=== PATIENT | male | born 1985 ===

== ENCOUNTER 2018-10-26 06:46 | Day surgery (SDC) | payer BC ==
[2018-10-14 17:33] VITALS: BMI 39.4
[2018-10-26] MEDS ORDERED: Propofol 10 mg/ml Inj (20 ML) ONE ×2 (07:24→07:58)
[2018-10-26] MEDS ORDERED: Midazolam 2 MG/2 ML VIAL ONE (07:24)
[2018-10-26] MEDS ORDERED: ePHEDrine 50 mg/ml Inj ONE (07:25)
[2018-10-26] MEDS ORDERED: Lidocaine 4% (Laryng-O-Jet) Kit MM ONE (07:26)
[2018-10-26] MEDS ORDERED: Rocuronium 10 mg/ml (5 ml) ONE (07:26)
[2018-10-26] MEDS ORDERED: Succinylcholine Chloride 20 mg/ml Syr (5 ml) IV ONE (07:26)
[2018-10-26] MEDS ORDERED: Succinylcholine 200 mg/10 ml Inj IV ONE (07:58)
[2018-10-26] MEDS ORDERED: Lactated Ringer's 1,000 ML IV ONE (08:05)
[2018-10-26] MEDS ORDERED: Dexamethasone 4 mg/1 ml ONE (08:32)
[2018-10-26] MEDS: Bupivacaine 0.5% Inj(30mL) ONE ×2 (08:43→09:20)
[2018-10-26] MEDS ORDERED: Neostigmine 1:1000 (1 mg/ml) Inj ONE (09:08)
--- NOTE | 2018-10-26 09:47 | PCM.SURG1 ---
Surgeon's Initial Post Op Note - Surgeon's Notes Surgeon: Bulmaro Assembler Skylights: Dialn Type of Anesthesia: General Endo Anesthesia Administered By: Diaz Pre-Operative Diagnosis: symptomatic cholelithiais Operative Findings: chronic cholecystitis Post-Operative Diagnosis: same Operation Performed: Laparoscopic cholecystectomy Specimen/Specimens Removed: gallbladder Estimated Blood Loss: EBL {In ML}: 5 Blood Products Given: N/A Drains Used: No Drains Post-Op Condition: Good Date of Surgery/Procedure: 10/26/18 Time of Surgery/Procedure: 08:30
--- NOTE | 2018-10-26 09:50 | CP.SDSHP ---
Same Day Surgery H & P - History Proposed Procedure: Laparoscopic cholecystectomy - Allergies Allergies: Allergies No Known Allergies Allergy (Unverified 11/05/15 21:49) - Physical Exam Vital Signs: Vital Signs 10/26/18 10/26/18 07:21 07:26 Temperature 98 F Pulse Rate 85 85 Respiratory 18 Rate Blood Pressure 123/60 O2 Sat by Pulse 98 Oximetry Short Stay Discharge - Short Stay Discharge Admitting Diagnosis/Reason for Visit: K80.20 Disposition: HOME/ ROUTINE Follow-up: Follow up in the office in 2 week for post-op visit Additional Instructions (Diet, Activity): No heavy lifting for 4 weeks
[2018-10-26] MEDS ORDERED: Oxycodone/Acetaminophen 5/325 mg Tab PO PRN ×2 (09:51→09:54)
[2018-10-26] MEDS: HYDROmorphone 0.5 mg/0.5 ml ISec IVP PRN ×3 (09:54→11:30)
[2018-10-26] MEDS ORDERED: Lactated Ringer's 1,000 ML IV SCH ×2 (10:00)
[2018-10-26 12:30] VITALS: RESP 18; O2SAT 99
[2018-10-26 15:03] VITALS: BP 139/73; PULSE 76; TEMP 97.6
--- NOTE | 2018-10-26 20:56 | OP ---
PROCEDURE DATE: 10/26/2018 PREOPERATIVE DIAGNOSIS: Symptomatic cholelithiasis. POSTOPERATIVE DIAGNOSIS: Chronic cholecystitis. PROCEDURE: Laparoscopic cholecystectomy. SURGEON: Reji Chamberlain MD [facility] TECHNICIAN: Sean Kong MD TYPE OF ANESTHESIA: General endotracheal intubation. ANESTHESIA ADMINISTERED BY: Sunni Hernandez MD IV FLUIDS: Crystalloids. ESTIMATED BLOOD LOSS: 5 mL. INTRAOPERATIVE FINDINGS: Chronic cholecystitis. SPECIMEN: Gallbladder. BRIEF HISTORY: Mr. Thompson is a very pleasant 33-year-old gentleman who initially presented to my office complaining of right upper quadrant abdominal pain. At one point, the pain was so bad that he presented to an outside facility and underwent a CAT scan showing cholelithiasis and steatosis of the liver. All the risks and benefits of the procedure were explained to the patient. With the patient having a full understanding of all the risks and benefits involved, informed consent was obtained and the patient was taken to the operating room for above-stated procedure. DESCRIPTION OF PROCEDURE: The patient was brought into the operating room and placed supine on the operating room table. Bilateral Flowtron boots were applied to the patient's lower extremities. After successful induction of anesthesia and successful endotracheal intubation by the Anesthesia team, the patient's abdomen was prepped with ChloraPrep stick and draped in a standard surgical fashion. Prior to the beginning of the procedure, a time-out was called in the room and everyone in the room were in agreement. The patient received prophylactic Ancef antibiotics prior to the incision done. Using Veress needle, the patient's abdomen was entered at the umbilicus and pneumoperitoneum was achieved with good opening pressures. Once this was accomplished, using an 11-blade scalpel knife, an approximately 1-cm incision was made in the umbilicus in a longitudinal fashion and subsequent to that, 11-mm trocar was introduced into the patient's abdomen. At this point in time, a 5-mm 0-degree scope was introduced into the patient's abdomen. The abdomen was inspected. Subsequent to that, attention was turned to the subxiphoid area. Using an #11 blade scalpel knife, an approximately 5-mm incision was made in a transverse fashion. Subsequent to that, another 5 mm trocar was introduced into the patient's abdomen. At this point in time, attention was turned to the right side of the patient's abdomen. Using an 11-blade scalpel knife, two 5-mm incisions were made in transverse fashion. Subsequent to that, another two 5-mm trocars were introduced into the patient's abdomen. At this point in time, the gallbladder was grasped at the fundus and the Jessica's pouch and using [place] dissectors, the cystic duct and cystic artery were dissected out and a critical view of safety was achieved. At this point in time, the cystic duct was clipped with two clips proximal and one distal and transected with laparoscopic scissors. The same thing was done for the cystic artery, it was clipped with two clips proximal, one distal and transected with laparoscopic scissors. At this point in time, gallbladder was dissected off the gallbladder fossa using hook electrocautery and once the gallbladder was completely freed up from the gallbladder fossa, EndoCatch bag was introduced into the patient's abdomen. Gallbladder was placed inside of the bag and the bag was closed. At this point in time, gallbladder fossa was inspected for hemostasis. Hemostasis was confirmed and the gallbladder fossa and abdominal cavity were irrigated with sterile saline and the fluid was suctioned out. Once this was accomplished, an 11-mm trocar together with EndoCatch bag and gallbladder were removed from the patient's abdomen and passed off to the [facility] as a specimen. Fascial layer at the umbilical port site was closed with one interrupted 0 Vicryl suture on the UR-5 needle in a [id number] fashion. At this point in time, the patient's abdomen was fully desufflated. The rest of the trocars were removed from the patient's abdomen and the skin was closed with 4-0 Monocryl suture in a running subcuticular fashion. At the end of the procedure, incision sites were infiltrated with 0.5% Marcaine, local anesthetic. The patient's abdomen was washed and dried, and Dermabond was applied to the site of the incisions. The patient was successfully extubated by the Anesthesia team, transferred to the stretcher, and taken to the recovery room in a stable condition. At the end of the procedure, all instrument counts, needles, and sponges were correct. Reji Chamberlain MD [facility] # [id number]
== END 2018-10-26 14:45 | disposition home or self-care (01) ==
LOC: H.OPSURG 06:46
PROVIDERS: ATTEND Surgery
DX: K80.20 Calculus of gallbladder without cholecystitis without obstruction (principal); E11.9 Type 2 diabetes mellitus without complications; G47.33 Obstructive sleep apnea (adult) (pediatric)
CPT/HCPCS: 47562; 82948; 88304; J0330; J0690; J1100; J1170; J2001; J2250; J2405; J2704; J2710; J2765; J3010; J7120